=== PATIENT | male | born 1965 | race Caucasian/White ===

== ENCOUNTER 2017-11-05 03:18 | Inpatient (IN) | payer OTHER ==
[~2017-11-05] VITALS: Ht 180.3 cm; Wt 72.0 kg
[2017-11-05 03:31] VITALS: BP 131/87; PULSE 92; RESP 14; TEMP 98.6; O2SAT 99
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
[2017-11-05] MEDS ORDERED: MORPHINE SULFATE 4 MG/ML INJ IV PUSH ONE (05:00)
[2017-11-05] MEDS ORDERED: MORPHINE SULFATE 2 MG/ML INJ IV PUSH PRN (05:00)
[2017-11-05 05:20] VITALS: BP 121/77; PULSE 97; RESP 19; O2SAT 99
[2017-11-05 05:26] LABS: BASOPHIL % 0.8 % (0.0-2.0); EOSINOPHIL # 0.1 TH/MM3 (0-0.4); EOSINOPHIL % 0.9 % (0.0-4.0); HEMATOCRIT 44.5 % (39.0-51.0); HEMOGLOBIN 15.1 GM/DL (13.0-17.0); LYMPH % 38.8 % (9.0-44.0); LYMPHOCYTE # 2.2 TH/MM3 (1.0-4.8); MEAN CELL VOLUME 89.4 FL (80.0-100.0); MEAN CORPUSCULAR HEMOGLOBIN 30.2 PG (27.0-34.0); MEAN CORPUSCULAR HGB CONC 33.8 % (32.0-36.0); MEAN PLATELET VOLUME 10.1 FL (7.0-11.0); MONO % 7.5 % (0.0-8.0); MONOCYTE # 0.4 TH/MM3 (0-0.9); PLATELET COUNT 159 TH/MM3 (150-450); RED BLOOD COUNT 4.98 MIL/MM3 (4.50-5.90); RED CELL DISTRIBUTION WIDTH 12.7 % (11.6-17.2); WHITE BLOOD COUNT 5.7 TH/MM3 (4.0-11.0)
[2017-11-05 05:55] LABS: ALBUMIN 3.9 GM/DL (3.4-5.0); AST (GOT) 22 U/L (15-37); BICARBONATE 27.2 MEQ/L (21.0-32.0); BLOOD UREA NITROGEN 13 MG/DL (7-18); CALCIUM 8.5 MG/DL (8.5-10.1); CHLORIDE 104 MEQ/L (98-107); CREATININE 0.99 MG/DL (0.60-1.30); GLOMERULAR FILTRATION RATE 79 ML/MIN (>89); GLUCOSE,RANDOM 85 MG/DL (74-106); SODIUM (NA) 138 MEQ/L (136-145)
[2017-11-05 05:56] LABS: ALT (GPT) 19 U/L (12-78)
[2017-11-05 06:00] LABS: ALKALINE PHOSPHATASE 84 U/L (45-117); TOTAL BILIRUBIN ADULT 0.5 MG/DL (0.2-1.0); TOTAL PROTEIN 7.2 GM/DL (6.4-8.2); TROPONIN I LESS THAN 0.02 NG/ML (0.02-0.05)
[2017-11-05] MEDS ORDERED: SODIUM CHLOR 0.9% 1000 ML INJ 1,000 ML IV ONE (06:00)
[2017-11-05] MEDS ORDERED: IOHEXOL 350 MG/ML 10 ML VIAL (for RAD DIAG) IVCONTRAST ONE (06:48)
[2017-11-05 07:30] VITALS: BP 119/69; PULSE 96; RESP 18; O2SAT 98
[2017-11-05] MEDS ORDERED: ACETAMINOPHEN/HYDROcodone 325 MG/5 MG TAB PO PRN ×2 (07:30)
[2017-11-05] MEDS ORDERED: SODIUM CHLORIDE 0.9% FLUSH 10 ML FLUSH IV FLUSH PRN (07:30)
[2017-11-05] MEDS ORDERED: ONDANSETRON HCL 4 MG/2 ML VIAL IV PUSH PRN (07:30)
[2017-11-05] MEDS ORDERED: ENALAPRILAT 1.25 MG/ML VIAL IV PUSH PRN (07:30)
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
--- NOTE | 2017-11-05 08:32 | EKG ---
Date Performed: 11/05/2017 Time Performed: 05:06:51 PTAGE: 52 years EKG: Sinus rhythm NORMAL ECG NO PREVIOUS TRACING DOCTOR: Juanpablo Peng Interpretating Date/Time 11/05/2017 08:31:31
[2017-11-05] MEDS: SODIUM CHLOR 0.9% 1000 ML INJ 1,000 ML IV SCH ×2 (08:39→17:32)
[2017-11-05] MEDS: DOCUSATE SODIUM 100 MG CAP PO SCH ×2 (09:00→20:59)
[2017-11-05] MEDS: MAGNESIUM HYDROXIDE SUSP 30 ML CUP PO SCH ×2 (09:00→20:59)
[2017-11-05] MEDS: FAMOTIDINE 20 MG TAB PO SCH ×2 (09:26→20:59)
[2017-11-05 10:52] VITALS: BP 120/82; PULSE 84; RESP 16; O2SAT 97
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
[2017-11-05] MEDS ORDERED: DOCU1CAP39 PO (12:27)
[2017-11-05] MEDS ORDERED: MAGN30S PO (12:27)
[2017-11-05] MEDS: ACETAMINOPHEN 1000 MG/100 ML 100 ML IV SCH ×3 (12:49→23:50)
[2017-11-05] MEDS: METHOCARBAMOL 500 MG TAB PO SCH ×2 (14:39→20:59)
[2017-11-05] MEDS: IBUPROFEN 600 MG TAB PO SCH ×2 (14:40→21:00)
[2017-11-05] MEDS: LIDOCAINE HCL 5% PATCH T-DERMAL SCH (14:41)
[2017-11-05 20:00] VITALS: BP 103/61; PULSE 57; RESP 16; TEMP 96.7; O2SAT 97
[2017-11-05 21:00] VITALS: PULSE 68
[2017-11-06] VITALS: BP 107/68; PULSE 64; RESP 17; TEMP 97.7; O2SAT 97
[2017-11-06 00:22] VITALS: PULSE 67
[2017-11-06] MEDS: SODIUM CHLOR 0.9% 1000 ML INJ 1,000 ML IV SCH ×2 (02:13→04:00)
[2017-11-06 04:00] VITALS: BP 113/73; PULSE 63; RESP 17; TEMP 96.9; O2SAT 99
[2017-11-06 04:10] VITALS: PULSE 63
[2017-11-06 04:14] LABS: BASOPHIL % 0.8 % (0.0-2.0); EOSINOPHIL % 0.9 % (0.0-4.0); HEMATOCRIT 40.2 % (39.0-51.0); HEMOGLOBIN 13.6 GM/DL (13.0-17.0); LYMPH % 22.2 % (9.0-44.0); MEAN CELL VOLUME 88.7 FL (80.0-100.0); MEAN CORPUSCULAR HEMOGLOBIN 29.9 PG (27.0-34.0); MEAN CORPUSCULAR HGB CONC 33.7 % (32.0-36.0); MEAN PLATELET VOLUME 9.7 FL (7.0-11.0); MONOCYTE # 0.4 TH/MM3 (0-0.9); NEUT % 67.1 % (16.0-70.0); PLATELET COUNT 129 TH/MM3 (150-450); RED BLOOD COUNT 4.54 MIL/MM3 (4.50-5.90); RED CELL DISTRIBUTION WIDTH 12.4 % (11.6-17.2); WHITE BLOOD COUNT 4.5 TH/MM3 (4.0-11.0)
[2017-11-06 04:19] LABS: CALCIUM 7.9 MG/DL (8.5-10.1); CREATININE 0.76 MG/DL (0.60-1.30)
[2017-11-06] MEDS: METHOCARBAMOL 500 MG TAB PO SCH ×3 (05:52→14:05)
[2017-11-06] MEDS: ACETAMINOPHEN 1000 MG/100 ML 100 ML IV SCH (05:52)
[2017-11-06] MEDS: IBUPROFEN 600 MG TAB PO SCH ×3 (05:53→14:06)
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
[2017-11-06 08:00] VITALS: BP 121/72; PULSE 69; RESP 18; TEMP 97.9; O2SAT 97
[2017-11-06] MEDS: DOCUSATE SODIUM 100 MG CAP PO SCH (08:49)
[2017-11-06] MEDS: FAMOTIDINE 20 MG TAB PO SCH (08:49)
[2017-11-06] MEDS: LIDOCAINE HCL 5% PATCH T-DERMAL SCH (08:55)
[2017-11-06] MEDS: MAGNESIUM HYDROXIDE SUSP 30 ML CUP PO SCH (08:55)
[2017-11-06] MEDS ORDERED: METH500T3 PO (11:19)
[2017-11-06] MEDS ORDERED: PERC5TAB12 PO (11:19)
[2017-11-06 12:00] VITALS: BP 116/73; PULSE 72; RESP 17; TEMP 96.7; O2SAT 98
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
== END 2017-11-06 15:33 | disposition home or self-care (01) | DRG 185 ==
LOC: NEPC 03:18 → UNDOADMOB 04:55 → NEDA 04:55 → OBSVTOIN 07:25 → NEDA 11:07 → NEDH 11:07 → N06B 17:17 → UNDODISOB 11-06 15:33
PROVIDERS: ADMIT Surgery; ATTEND Surgery
DX: S22.20XA Unspecified fracture of sternum, initial encounter for closed fracture (principal); V43.52XA Car driver injured in collision with other type car in traffic accident, initial encounter; Y92.410 Unspecified street and highway as the place of occurrence of the external cause
CPT/HCPCS: 71045; 71250; 71275; 74174; 74176; 80048; 80053; 82550; 82552; 83690; 84484; 85025; 93005; 94150; 99285; G8987-GP; G8988-GP; J0131; J2270; J7030; Q9967